=== PATIENT | female | born 1990 | race Two or more races ===

== ENCOUNTER 2021-02-10 11:06 | Emergency (ER) | payer OTHER | END 2021-02-10 11:11 | disposition left against medical advice (07) | LOC: MED 11:06 | DX: R60.0 Localized edema (principal); Z53.21 Procedure and treatment not carried out due to patient leaving prior to being seen by health care provider ==

== ENCOUNTER 2021-04-07 09:24 | Emergency (ER) | payer OTHER ==
[~2021-04-07] VITALS: Ht 160 cm; Wt 107.0 kg
[2021-04-07 09:29] VITALS: BP 140/78
[2021-04-07] MEDS ORDERED: LIDOCAINE/EPI 1% 1:100000 20 ML VIAL INJ ONE (09:50)
[2021-04-07] MEDS ORDERED: HYDROcodone/APAP 5/325 MG 1 TAB TAB PO ONE (09:50)
[2021-04-07 10:40] VITALS: BP 140/78
== END 2021-04-07 10:40 | disposition home or self-care (01) ==
LOC: MED 09:24
DX: N61.1 Abscess of the breast and nipple (principal); Z88.0 Allergy status to penicillin
CPT/HCPCS: 10060; 99283; J2001